=== PATIENT | male | born 1995 | race Two or more races ===

== ENCOUNTER 2016-11-13 09:28 | Emergency (ER) | payer OTHER ==
[2016-11-13 09:35] VITALS: TEMP 97.7; O2SAT 98
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
[2016-11-13] MEDS ORDERED: OXYCODONE/APAP 5/325 TAB PO ONE (11:17)
[2016-11-13] MEDS ORDERED: OXYCODONE/APAP 5/325MG PREPACK#4 BTL TAKEHOME ONE (11:17)
[2016-11-13 11:47] VITALS: BP 129/71; PULSE 65; RESP 15
== END 2016-11-13 11:47 | disposition home or self-care (01) ==
DX: S52.91XA Unspecified fracture of right forearm, initial encounter for closed fracture (principal); V49.40XA Driver injured in collision with unspecified motor vehicles in traffic accident, initial encounter; Y92.410 Unspecified street and highway as the place of occurrence of the external cause; Y99.8 Other external cause status; Y93.89 Activity, other specified

== ENCOUNTER 2017-07-10 12:10 | Emergency (ER) | payer OTHER ==
[2017-07-10 12:17] VITALS: TEMP 98.1
--- NOTE | 2017-07-10 12:58 | EDPHY ---
H & P Time Seen by Provider: 07/10/17 12:34 HPI/ROS: CHIEF COMPLAINT: Dysuria, penile discharge HISTORY OF PRESENT ILLNESS: 21-year-old male presents to the emergency department with dysuria and penile discharge. Symptoms began yesterday. The patient states that he asked his multiple partners if they have any symptoms days said no. Apparently they have had negative testing for sexually transmitted infections. He denies fevers or chills. Denies any other abdominal pain or back pain. Denies any lesions or open sores. REVIEW OF SYSTEMS: Constitutional: No fever, no chills. Eyes: No double or blurry vision. ENT: No sore throat. Respiratory: No cough, no shortness of breath. Cardiac: No chest pain. Gastrointestinal: No abdominal pain, vomiting or diarrhea. Genitourinary: Dysuria as above Musculoskeletal: No neck or back pain. Skin: No rashes. Neurological: No headache. Past Medical/Surgical History: Negative Social History: Single Smoking Status: Never smoked Physical Exam: General Appearance: Alert, no distress. Afebrile. Eyes: Pupils equal and round. Extraocular motions are all intact. ENT: Mouth: Mucous membranes moist. Respiratory: No wheezing, rhonchi, or rales, lungs are clear to auscultation. Cardiovascular: Regular rate and rhythm. Gastrointestinal: Abdomen is soft and nontender, no masses, no rebound or guarding, bowel sounds normal. Genitourinary: Deferred Neurological: Alert and oriented x 3, cranial nerves II through XII grossly intact Skin: Warm and dry, no rashes. Musculoskeletal: Nontender to palpate along the cervical, thoracic or lumbar spine. Neck is supple. Extremities: Full range of motion and no peripheral edema. Psychiatric: Patient is oriented X 3, there is no agitation. Constitutional: Initial Vital Signs Temperature (C) 36.7 C 07/10/17 12:14 Heart Rate 80 07/10/17 12:14 Respiratory Rate 16 07/10/17 12:14 Blood Pressure 121/51 H 07/10/17 12:14 O2 Sat (%) 97 07/10/17 12:14 O2 Delivery Mode Room Air Allergies/Adverse Reactions: No Known Allergies Allergy (Unverified 07/10/17 12:14) Home Medications: Medication Instructions Recorded Doxycycline Hyclate [Doxycycline] 100 mg PO BID #14 cap 07/10/17 Medical Decision Making ED Course/Re-evaluation: 21-year-old male presents to the emergency department with dysuria and history of penile discharge. I explained the concern for sexually transmitted infection. I offered both testing and treatment and the patient inclined to just do treatment. He requested the IM injection. Patient was given Rocephin 250 mg IM and prescription for doxycycline 100 mg twice daily for 1 week. Patient was given referral for primary care provider [facility]. Patient had was also discouraged from having intercourse until antibiotics and finished. Differential Diagnosis: Including but not limited to urinary tract infection, pyelonephritis, sexually transmitted infection - Data Points Laboratory Results: 07/10/17 12:30 Urine Color YELLOW Urine Appearance CLEAR Urine pH 5.0 (5.0-7.5) Ur Specific David 1.027 (1.002-1.030) Urine Protein NEGATIVE (NEGATIVE) Urine Ketones NEGATIVE (NEGATIVE) Urine Blood NEGATIVE (NEGATIVE) Urine Nitrate NEGATIVE (NEGATIVE) Urine Bilirubin NEGATIVE (NEGATIVE) Urine Urobilinogen NEGATIVE EU EU (0.2-1.0) Ur Leukocyte Esterase NEGATIVE (NEGATIVE) Urine RBC NONE SEEN /hpf /hpf (0-3) Urine WBC 1-3 /hpf /hpf (0-3) Ur Epithelial Cells TRACE /lpf /lpf (NONE-1+) Urine Mucus 1+ /lpf /lpf (NONE-1+) Urine Glucose NEGATIVE (NEGATIVE) Departure - Departure Disposition: Home, Routine, Self-Care Clinical Impression: Dysuria, Sexually transmitted infection Condition: Good Instructions: Doxycycline (By mouth), Sexually Transmitted Diseases (ED), Condom Use (ED), Safe Sex (ED), Dysuria (ED) Additional Instructions: You were given injection of Rocephin in the emergency department. Doxycycline twice daily for 7 days. You should follow up with primary care provider or [facility] to discuss testing for HIV and syphilis. You should not have intercourse until you have finished the antibiotics. Your partners should also be tested and treated. Referrals: Merritt Mosqueda MD [Medical Doctor] - As per Instructions [facility] [Clinic] - As per Instructions (May be able to obtain HIV and syphilis testing from [facility].) Prescriptions: Doxycycline Hyclate [Doxycycline] 100 mg PO BID #14 cap
[2017-07-10 13:42] VITALS: BP 116/61; PULSE 76; RESP 18; O2SAT 96
== END 2017-07-10 13:42 | disposition home or self-care (01) ==
DX: R30.0 Dysuria (principal); A64 Unspecified sexually transmitted disease
CPT/HCPCS: J0696